=== PATIENT | male | born 1980 | race Caucasian/White ===

== ENCOUNTER → 2023-03-05 | Outpatient (CLI) | payer BC, SELFPAY ==
--- NOTE | 2023-03-05 16:33 | RAD_ITS ---
INDICATION: concern for stress fx EXAMINATION/TECHNIQUE: X-RAY - LEFT XR Foot 3 VIEWS COMPARISON: FINDINGS: SOFT TISSUES: No soft tissue swelling or gas. No radiopaque foreign body. BONES/JOINTS: No acute fracture or subluxation.. There is a moderate hallux valgus.. No sclerotic or destructive changes observed. RAD/Foot min 3 Views IMPRESSION: No acute bony injury. Electronically Signed: Mike Ospina DO at 17:36 EST ,
== END | disposition home or self-care (01) ==
LOC: MTRAD 16:33
PROVIDERS: PCP Internal Medicine; Referring Provider Physician Assistant Surgical; Visit Provider Physician Assistant Surgical
DX: S99.922A Unspecified injury of left foot, initial encounter (principal); X58.XXXA Exposure to other specified factors, initial encounter
CPT/HCPCS: 73630